=== PATIENT | female | born 1995 | race Caucasian/White ===

== ENCOUNTER 2016-07-19 12:36 | Emergency (ER) | payer OTHER ==
[2016-07-19 14:16] VITALS: BMI 23.3
[2016-07-19 14:19] VITALS: BP 111/72; PULSE 77; RESP 18; TEMP 97.2; O2SAT 100
--- NOTE | 2016-07-19 15:27 | C.PDOC ---
History Of Present Illness 21 y/o female complaining of puritic generalized skin rash for the last few days. She reports that her boyfriend works in the [place] [facility] and was recently diagnosed with scabies. She has been unable to make an appointment with her PMD and came to the ED for evaluation and treatment. Time Seen by Provider: 07/19/16 14:21 Chief Complaint (Nursing): Abnormal Skin Integrity History Per: Patient History/Exam Limitations: no limitations Onset/Duration Of Symptoms: Days Current Symptoms Are (Timing): Still Present Severity: Moderate Recent travel outside of the [place]: No Additional History Per: Patient Past Medical History Reviewed: Nursing Documentation, Vital Signs Vital Signs: Last Vital Signs Temp 97.2 F L 07/19/16 14:17 Pulse 77 07/19/16 14:17 Resp 18 07/19/16 14:17 BP 111/72 07/19/16 14:17 Pulse Ox 100 07/19/16 18:21 Family History: States: Unknown Family Hx - Social History Hx Tobacco Use: No Hx Alcohol Use: No Hx Substance Use: No - Immunization History Hx Tetanus Toxoid Vaccination: No Hx Influenza Vaccination: No Hx Pneumococcal Vaccination: No Review Of Systems Except As Marked, All Systems Reviewed And Found Negative. Skin: Positive for: Rash Physical Exam - Physical Exam Appears: Non-toxic, No Acute Distress Skin: Warm, Dry, Rash (generalized raised rash in skin folds of elbow, abdomen, and knees. Also noted: excoriation. ) Neck: Normal ROM Chest: Symmetrical, No Deformity, Tenderness Cardiovascular: Rhythm Regular Respiratory: Normal Breath Sounds Back: Normal Inspection Neurological/Psych: Oriented x3 ED Course And Treatment O2 Sat by Pulse Oximetry: 100 (RA) Pulse Ox Interpretation: Normal Medical Decision Making Medical Decision Making: Scabies, with boyfriend's recent diagnosis. Rx for Permethrin given. Disposition Doctor Will See Patient In The: Office Counseled Patient/Family Regarding: Diagnosis, Need For Followup - Disposition Disposition: HOME/ ROUTINE Disposition Time: 15:25 Condition: STABLE Additional Instructions: Follow up with PMD within 1-2 days. Return to ED if feel worse. Prescriptions: Permethrin 5% [Permethrin 5% Cream] 1 applic TOP ONCE #1 tube Instructions: Scabies (ED) - Clinical Impression Clinical Impression: Scabies - Scribe Statement The provider has reviewed the documentation as recorded by the Scribtimothy Mata
== END 2016-07-19 15:30 | disposition home or self-care (01) ==
LOC: C.ER 12:36
DX: B86 Scabies (principal)